=== PATIENT | male | born 1960 | race Caucasian/White ===

== ENCOUNTER → 2017-01-22 | Outpatient (CLI) | payer BC ==
[~2017-01-22] MED LIST: COEN1CAP17 PO; CRS20 PO; OMEG10007 PO; VTMD1000 PO
== END | disposition home or self-care (01) ==
LOC: C.PATHSPEC 17:55
PROVIDERS: ATTEND Urology
DX: R97.20 Elevated prostate specific antigen [PSA] (principal)

== ENCOUNTER → 2017-02-24 | Outpatient (CLI) | payer BC ==
--- NOTE | 2017-02-24 11:27 | DIAGNOSTIC IMAGING REPORT ---
BONE SCAN WHOLE BODY HISTORY: Prostate carcinoma C61 Prostate cancer RADIOTRACER: 26.1 mCi Tc-99m MDP STUDY/IMAGES: Planar anterior and posterior whole body imaging was performed 3 hours following the intravenous administration of radiotracer. COMPARISON: None. FINDINGS: Activity characteristics of the axial and appendicular skeleton are unremarkable. Bilateral renal activity is present. There are mild degenerative activity changes of the shoulders bilaterally. There are no abnormal soft tissue activity characteristics. IMPRESSION: No evidence for metastatic bone disease The above report was generated using voice recognition software. It may contain grammatical, syntax or spelling errors. Electronically signed by: Ismael Richards M.D. 02/24/2017 11:25 AM Dictated Date/Time: 02/24/2017 11:25 AM
== END | disposition home or self-care (01) ==
LOC: C.NUCL 07:34
PROVIDERS: ATTEND Urology
DX: C61 Malignant neoplasm of prostate (principal); M19.011 Primary osteoarthritis, right shoulder; M19.012 Primary osteoarthritis, left shoulder

== ENCOUNTER 2017-04-24 05:27 | Day surgery (SDC) | payer BC ==
[2017-04-09 08:00] VITALS: BMI 22.0
--- NOTE | 2017-04-09 08:40 | PAT Medication Instructions ---
Service Date Apr 09, 2017. Current Home Medication List Cholecalciferol (Vitamin D3), 1 TAB PO QPM Coenzyme Q10 (Ubidecarenone) (Co Q 10), 1 TAB PO QPM Fish Oil ([place]-3), 1 CAP PO QPM Rosuvastatin Calcium (Crestor), 1 TAB PO HS Medication Instructions For Your Scheduled Surgery - Hold the following medications 2 weeks prior to surgery: Coenzyme Q10 (Ubidecarenone) (Co Q 10), 1 TAB PO QPM Fish Oil ([place]-3), 1 CAP PO QPM - Take the following medications as scheduled the night before surgery: Cholecalciferol (Vitamin D3), 1 TAB PO QPM Rosuvastatin Calcium (Crestor), 1 TAB PO HS If you have any questions please call us at [phone] or [phone] or [phone]
--- NOTE | 2017-04-09 09:22 | DIAGNOSTIC IMAGING REPORT ---
CHEST PREADMISSION(PA/LAT) CLINICAL HISTORY: Preoperative evaluation. COMPARISON STUDY: Chest radiograph April 03, 2016. FINDINGS: The lung volumes are normal. No pneumothorax or pleural effusion is present. There is no consolidation or evidence of pulmonary edema. Cardiomediastinal silhouette is normal. IMPRESSION: No acute cardiopulmonary findings. Electronically signed by: Bebeto Wilson M.D. 04/09/2017 9:20 AM Dictated Date/Time: 04/09/2017 9:19 AM
[2017-04-09 09:37] LABS: BASO % 0.5 %; BASO ABS # 0.03 K/uL (0-0.2); COMPLETE YES; EOS % 3.9 %; HEMATOCRIT 42.3 % (42-52); IG% 0.2 %; LYMPH % 23.5 %; LYMPH ABS # 1.34 K/uL (1.2-3.4); MEAN CELL VOLUME 92.6 fL (80-100); MEAN CORPUSCULAR HEMOGLOBIN 30.6 pg (25-34); MEAN CORPUSCULAR HGB CONC 33.1 g/dl (32-36); MEAN PLATELET VOLUME 9.2 fL (7.4-10.4); MONO % 9.3 %; NEUT % 62.6 %; PLATELET COUNT 293 K/uL (130-400); RED BLOOD COUNT 4.57 M/uL (4.7-6.1); WHITE BLOOD COUNT 5.71 K/uL (4.8-10.8)
[2017-04-09 09:38] LABS: URINE APPEARANCE CLEAR (CLEAR); URINE BILIRUBIN NEG (NEG); URINE COLOR YELLOW; URINE NITRITE NEG (NEG); URINE SPECIFIC GRAVITY 1.018 (1.000-1.030); UROBILINOGEN NEG (NEG)
[2017-04-09 09:39] LABS: MANUAL MICROSCOPIC REQUIRED? NO; REVIEW REQ? NO
[2017-04-09 09:46] LABS: BUN/CREATININE RATIO 15.5 (10-20); CALCIUM 9.4 mg/dl (8.5-10.1); CREATININE 0.91 mg/dl (0.60-1.40); POTASSIUM 4.7 mmol/L (3.5-5.1)
[~2017-04-24] VITALS: Ht 165.1 cm; Wt 61.4 kg
[2017-04-24 05:55] VITALS: BP 143/87; PULSE 86; TEMP 36.6; O2SAT 98; Ht 165.1 cm; Wt 61.4 kg
[2017-04-24] MEDS ORDERED: LACTATED RINGER'S 1000ML 1,000 ML IV SCH (06:00)
[2017-04-24] MEDS ORDERED: CIPROFLOXACIN / D5W 400 MG IV SCH (06:00)
[2017-04-24] MEDS ORDERED: GENTAMICIN INJ 120 MG in DEXTROSE 5% 100ML 100 ML IV SCH (06:00)
[2017-04-24] MEDS ORDERED: METH1TAB81 PO (06:11)
[2017-04-24] MEDS ORDERED: CIPR1TAB11 PO (06:11)
--- NOTE | 2017-04-24 07:00 | History & Physical Bridge Note ---
H&P Re-Evaluation Bridge Note: I have examined the patient, reviewed the History & Physical and in the interval since the performance of the History & Physical I have noted the following changes of clinical significance: No changes noted
[2017-04-24] MEDS ORDERED: NEOSTIGMINE METHYLSULFATE 5 MG/5 ML SYR ONE (07:04)
[2017-04-24] MEDS ORDERED: PROPOFOL IV EMULSION 10 MG/ML 20 ML VIAL IV ONE (07:04)
[2017-04-24] MEDS ORDERED: LIDOCAINE HCL 2% 2 ML VIAL (20MG/ML) ONE (07:04)
[2017-04-24] MEDS ORDERED: DEXAMETHASONE SOD INJ 4 MG/ML VIAL ONE ×2 (07:04→07:49)
[2017-04-24] MEDS ORDERED: MIDAZOLAM HCL 1 MG/ML 2ML VIAL ONE (07:04)
[2017-04-24] MEDS ORDERED: ONDANSETRON INJ 2 MG/ML 2 ML VIAL ONE ×2 (07:04→09:03)
[2017-04-24] MEDS ORDERED: GLYCOPYRROLATE INJ 0.2 MG/ML VIAL ONE ×2 (07:04→09:03)
[2017-04-24] MEDS ORDERED: FENTANYL CITRATE INJ 50 MCG/1 ML 2 ML VIAL ONE (07:04)
[2017-04-24] MEDS ORDERED: CONRAY 60% 50 ML VIAL ONE (07:26)
[2017-04-24] MEDS ORDERED: ONDANSETRON INJ 2 MG/ML 2 ML VIAL IV PRN (07:45)
[2017-04-24] MEDS ORDERED: ATROPINE SULFATE 0.1 MG/ML 5ML SYR IV PRN (07:45)
[2017-04-24] MEDS ORDERED: HYDROmorphone INJ 1 MG/ML SYR IV PRN (07:45)
[2017-04-24] MEDS ORDERED: EpHEDrine SULFATE INJ 50 MG/ML AMP IV PRN (07:45)
[2017-04-24] MEDS ORDERED: LARYING-O-JET KIT (LTA) ONE ×2 (07:49)
[2017-04-24] MEDS ORDERED: PHENYLEPHRINE 100MCG/ML 5ML SYR ONE (07:53)
[2017-04-24] MEDS ORDERED: DiphenhydrAMINE HCL 50 MG/ML VIAL ONE (08:05)
[2017-04-24] MEDS ORDERED: EpHEDrine SULFATE 50MG/5ML SYR ONE (09:03)
[2017-04-24] MEDS ORDERED: BACITRACIN OINT 15 GM TUBE ONE (09:35)
[2017-04-24] MEDS ORDERED: KETOROLAC TROMETHAMINE 30 MG/ML VIAL ONE (09:36)
--- NOTE | 2017-04-24 09:52 | Discharge Instructions ---
Discharge Instructions Date of Service Apr 24, 2017. Admission Reason for Admission: Prostate Cancer Discharge Discharge Diagnosis / Problem: Prostate cancer s/p brachytherapy of the prostate Discharge Goals Goal(s): Improve disease control, Therapeutic intervention Activity Recommendations Activity Limitations: as noted below Lifting Limitations: no more than 25 pounds, gradually increase as tolerated Exercise/Sports Limitations: rest today, gradually increase as tolerated May Resume Sexual Activity: after follow-up appointment Shower/Bathe: tomorrow (no tub bath for 2 days) Driving or Machine Use: resume 1 day after discharge . Instructions / Follow-Up Instructions / Follow-Up In office as scheduled for symptom check Current Hospital Diet Patient's current hospital diet: Discharge Diet Recommended Diet: Regular Diet (good fluid intake) Procedures Procedures Performed: Brachy Therapy Volume and Guide Pending Studies Studies pending at discharge: no Medical Emergencies . Who to Call and When: Medical Emergencies: If at any time you feel your situation is an emergency, please call 911 immediately. . Non-Emergent Contact Non-Emergency issues call your: Urologist Call Non-Emergent contact if: you have a fever, temperature is above 101, your pain is not controlled, your pain is worsening, your pain is unusual for you, your pain is concerning you, you have any medication questions . . "Provider Documentation" section prepared by Shaggy Fajardo. . VTE Core Measure Inpt VTE Proph given/why not?: SCD's
[2017-04-24] MEDS ORDERED: OXYCODONE/ACETAMINOPHEN 5-325 TAB PO PRN ×2 (10:00)
[2017-04-24] MEDS ORDERED: PHENAZOPYRIDINE HCL 200 MG TAB PO PRN (10:00)
--- NOTE | 2017-04-24 10:00 | [facility] Post Operative Brief Note ---
Immediate Operative Summary Operative Date Apr 24, 2017. Pre-Operative Diagnosis cT1c Eryn 3+4 Prostate cancer, pre-treatment PSA of 4.6 Post-Operative Diagnosis Same Procedure(s) Performed Brachy Therapy Volume and Guide Surgeon Dr. Fajardo, Dr. Chappell Lead Radiation Therapist Surgeon(s) Rommel Avalos Estimated Blood Loss 10 ml Findings 18 cc gland, 46 seeds placed via 19 needles Specimens none per surgeon Drains Nance to gravity Anesthesia GAET Complication(s) None Disposition Recovery Room / PACU
--- NOTE | 2017-04-24 10:05 | [facility] Operative Report ---
Operative Report Operative Date Apr 24, 2017. Pre-Operative Diagnosis cT1c [place] 3+4 Prostate cancer, pre-treatment PSA of 4.6 Post-Operative Diagnosis Same Procedure(s) Performed Brachy Therapy Volume and Guide Surgeon Dr. Fajardo, Dr. Chappell Foreign Service Teacher Surgeon(s) Rommel Avalos Estimated Blood Loss 10 ml Findings 18 cc gland, 46 seeds placed via 19 needles. Specimens none per surgeon Drains Nance to gravity Anesthesia GAET Disposition Recovery Room / PACU Indications 56-year-old man found to have Eryn 3+4 prostate cancer on prostate biopsy for elevated PSA 4.6. After discussion of risks and benefits of various forms of intervention is decided upon brachytherapy of the prostate gland to manage his disease. Please see H&P for further details. He has taken his preoperative antibiotics as ordered as well as his anti-inflammatories. Intravenous gentamicin and ciprofloxacin provided for antibiotic coverage today and SCDs used for DVT prophylaxis. Description of Procedure Patient was properly identified and brought into the operative suite after identification of appropriate consent of the chart. General anesthesia with endotracheal intubation was initiated and patient was prepped and draped in standard fashion for this procedure. Full timeout procedure was followed. Nance catheter was placed with [place] in the bladder and aerated gel within the catheter for easier identification on ultrasound. Transrectal ultrasound probe was introduced in prostate was well visualized and noted to be only 18 mL in size consistent with previous imaging findings. Boundaries of the prostate were well-defined and minimal calcific patient will present. Prostate images were captured and radiation oncology plan calculated per their service. Peripheral needle pass a 14 needles was made and these were implanted per the radiation oncology plan with good location of the seeds on direct visualization with live ultrasound imaging. After this was complete calculations were redone and 5 internal needles were used for a second pass with excellent coverage of the gland. Rectal and urethral doses were noted to be within acceptable limits. Minimal bleeding was present. Fluoroscopy images were captured demonstrating good seed position on plain imaging. Bladder was drained catheter placed to gravity drainage. Pressure was held with bacitracin ointment and the perineal area using an orthopedic hammer to avoid excess proximity to the seeds. Anesthesia was reversed patient was transferred the recovery room in stable condition. Follow-up care: Patient will be discharged the radiation oncology service for further imaging. Trial void today prior to discharge home. Patient has his prescriptions at home to complete including his antibiotic and medications for voiding symptoms. Postoperative appointments are confirmed. Patient is to contact our service should he note any fevers, chills, nausea, vomiting or other significant difficulties in the postoperative period. I attest to the content of the Intraoperative Record and any orders documented therein. Any exceptions are noted below.
[2017-04-24] MEDS: FENTANYL CITRATE INJ 50 MCG/1 ML 2 ML VIAL IV PRN ×3 (10:09→10:20)
--- NOTE | 2017-04-24 10:40 | Anesthesiology Progress Note ---
Anesthesia Post Op Note Date & Time Apr 24, 2017 at 10:39 Vital Signs Pain Intensity: 2 Vital Signs Past 12 Hours Date Time Temp Pulse Resp B/P (MAP) Pulse Ox O2 Delivery O2 Flow Rate FiO2 04/24/17 10:30 36.3 66 16 127/88 100 Room Air 04/24/17 10:20 71 16 129/80 100 Room Air 04/24/17 10:10 67 16 117/74 100 Oxymask 10 04/24/17 10:00 70 16 116/81 100 Oxymask 10 04/24/17 09:50 36.2 105 16 138/82 100 Oxymask 10 04/24/17 05:55 36.6 86 18 143/87 (105) 98 Room Air Notes Mental Status: alert / awake / arousable, participated in evaluation Pt Amnestic to Procedure: Yes Nausea / Vomiting: adequately controlled Pain: adequately controlled Airway Patency, RR, SpO2: stable & adequate BP & HR: stable & adequate Hydration State: stable & adequate Anesthetic Complications: no major complications apparent
[2017-04-24 10:45] VITALS: BP 117/75; PULSE 63; TEMP 36.4; O2SAT 100
[2017-04-24 11:17] VITALS: BP 120/71; PULSE 85; O2SAT 99
[2017-04-24 11:40] VITALS: BP 113/73; PULSE 104; O2SAT 99
--- NOTE | 2017-04-24 14:03 | DIAGNOSTIC IMAGING REPORT ---
INTRAOPERATIVE RADIOGRAPH CLINICAL HISTORY: Brachytherapy treatment the prostate. Fluoroscopy time: 5 seconds. FINDINGS: A single spot fluoroscopic image of the pelvis is presented. A Nance catheter is in place and the bladder is distended with contrast. Numerous brachytherapy seeds project over the prostate gland. IMPRESSION: Intraoperative image from brachytherapy treatment of prostate gland. Electronically signed by: Sanjeev Cerda M.D. 04/24/2017 2:01 PM Dictated Date/Time: 04/24/2017 2:00 PM
== END 2017-04-24 12:00 | disposition home or self-care (01) ==
LOC: C.ACU 05:27
PROVIDERS: ATTEND Urology
DX: C61 Malignant neoplasm of prostate (principal); R97.20 Elevated prostate specific antigen [PSA]; E78.5 Hyperlipidemia, unspecified; N43.40 Spermatocele of epididymis, unspecified; Z80.42 Family history of malignant neoplasm of prostate; Z87.891 Personal history of nicotine dependence

== ENCOUNTER → 2017-04-28 | Outpatient (CLI) | payer BC ==
[~2017-04-28] MED LIST changes: +CIPR1TAB11 PO; +METH1TAB81 PO
--- NOTE | 2017-07-16 07:20 | CODING QUERY NO DIAGNOSIS ---
: 1960 TREATMENT RENDERED WITHOUT A DIAGNOSIS To promote full compliance with coding requirements relating to patient care, physician participation is requested in all cases of refuge manager uncertainty. Please assist us with providing a diagnosis/symptom for the test(s) below: A diagnosis/symptom was not documented on your Order. A valid diagnosis/symptom is required to bill all insurances. Please remember that we are unable to code a diagnosis of rule out, probable, possible, questionable, or suspected. Tests that require a diagnosis: DOS 04/28/17 BRACHYTX ISODOSE COMPLEX DIAGNOSIS: Provider Signature: Date: Thank you Cheryl Lowry [facility] Health Information Management Once completed, please kindly fax back to [phone] For questions please call [phone]
== END | disposition home or self-care (01) ==
LOC: C.ONC 12:36
PROVIDERS: ATTEND Physician Assistant Medical
DX: C61 Malignant neoplasm of prostate (principal)

== ENCOUNTER → 2017-08-20 | Outpatient (CLI) | payer OTHER ==
[~2017-08-20] MED LIST changes: -CIPR1TAB11 PO; -METH1TAB81 PO
[2017-08-20 14:01] VITALS: BP 117/68; PULSE 72; TEMP 37; O2SAT 96
--- NOTE | 2017-08-20 16:16 | Radiation Oncology Follow-Up ---
Radiation Oncology Follow-Up Date of Visit Aug 20, 2017. Reason For Visit One-month follow-up in cancer survivorship care plan Radiation Completion Date 04/24/17implant IMRT 07/21/17 Diagnosis (1) Prostate cancer Status: Acute Onset Date: 01/22/2017 Location: Left lobe of the prostate Histology Subtype: Adenocarcinoma Stage: ll Permanent Comment: Rise in PSA. Pretreatment PSA 4.6 Status post ultrasound-guided biopsies 01/22/2017 Adenocarcinoma [place] 3+3 and 3+4 with perineural invasion Prostate volume 18.3 Prostate density 0.251 Status post prostate seed implant 04/24/2017, 46 seeds were placed, 8500 cGy Status post completion of radiation therapy July 21, 2017. He received 4500 cGy utilizing volumetric modulated radiation therapy. Last Edited By: Aminta Ramirez on Aug 01, 2017 08:08 History of Present Illness Mr. Cardona has a family history of prostate cancer. The patient's brother was diagnosed with prostate cancer at age 52. He is presently 62 and alive and well after treatment with a radical prostatectomy. Patient also has a son age 30 who will start screening at the appropriate time. The patient has been followed with screening prostate-specific antigens. The patient was initially seen by Dr. Fajardo on 03/19/2016 with a history of enlarging spermatocele right greater than left. He underwent an ultrasound for diagnosis and a surgery performed on 04/15/2016 with a spermatocelectomy. A subsequent prostate- specific antigen performed on 05/28/2016 was 3.8. This was repeated on 2016 with a prostate-specific antigen of 4.6 and free prostate-specific antigen at 9%. With this change in prostate-specific antigen and a low free prostate- specific antigen Dr. Fajardo discussed ultrasound-guided biopsies with the patient. He agreed to proceed and therefore on 01/22/2017 the patient underwent this procedure. A total of 14 biopsies were taken. This includes 2 biopsies each of the left and right base, left and right mid, left and right apex and one biopsy each from the left and right anterior gland. The biopsies from the left base, right base, right mid gland, right apex and right anterior were benign. 2 of 2 biopsies from the left mid gland were positive for adenocarcinoma [place] grade 3+4 involving 20% and 15% of the core samples respectively. The Eryn pattern 4 comprises 10% of the tumor present. There was evidence of perineural invasion. 2 of 2 biopsies in the left apex were positive for adenocarcinoma [place] grade 3+3 involving 35% and 20% of the core tissue samples respectively. There was perineural invasion identified. One biopsy from the left anterior were positive for adenocarcinoma [place] grade 3+3 involving 25% of the core tissue sample with no perineural invasion identified. Therefore total of 5 out of 14 biopsies were positive on the left. 3 biopsies were Eryn grade 3+3 and 2 biopsies were E[place] grade 3+4. Case: [id number]. The patient's clinical stage was therefore a T1c and his biopsy stage was a T2b. The patient return to discuss these findings with Dr. Fajardo area he ordered a staging bone scan which was performed on 02/24/2017. This showed no evidence of bony metastatic disease. He briefly discussed the role of radical prostatectomy. The patient will return this March 07 to discuss in further detail the surgical option. He asked us to see the patient to discuss the radiation treatment option. After reviewing all his options the patient ultimately made the decision to undergo prostate seed implant followed by external beam therapy. The seed implant was performed on 04/24/2017. 46 seeds were placed. He received 8500 cGy. He then returned to our office and underwent a CT simulation. He received external beam radiation therapy. Treatment was complete July. He received 4500 cGy. Interim History He has been doing well over the past month. He has had improvement in his urinary status. His AUA score today was 2. At the end of treatment he had given a score of 5. He is not having issues with dysuria. He completed and expanded prostate cancer index composite for clinical practice and gave a score of 0 of 12 and urinary incontinence symptoms. He gives a score of 1 of 12 and urinary irritation symptoms. He gives score of 1 of 12 and bowel symptoms. He gave a score of 0 12 and sexual symptoms. He gave a score of 0 of 12 and hormonal vitality symptoms. His total was 2 of 60. Allergies Coded Allergies: No Known Allergies (Unverified , 04/09/17) Home Medications Scheduled Cholecalciferol (Vitamin D3), 1 TAB PO QPM Coenzyme Q10 (Ubidecarenone) (Co Q 10), 1 TAB PO QPM Fish Oil ([place]-3), 1 CAP PO QPM Rosuvastatin Calcium (Crestor), 1 TAB PO HS Review of Systems Gastrointestinal: Symptoms: WNL Oral: Symptoms: No Problems Respiratory: Symptoms: WNL Urinary: Symptoms: Nocturia Comments: nocturiax1 Skin: Symptoms: No Problems Physical Exam Vital Signs Date Time Temp Pulse Resp B/P (MAP) Pulse Ox O2 Delivery O2 Flow Rate FiO2 08/20/17 14:01 37.0 72 20 117/68 96 Fatigue: None General Appearance: no apparent distress Eyes: normal inspection, EOMI ENT: normal ENT inspection, hearing grossly normal Neck: no adenopathy Respiratory/Chest: lungs clear, no respiratory distress, no accessory muscle use Cardiovascular: regular rate, rhythm, no gallop, no murmur Abdomen: non tender, soft, no organomegaly Extremities: no pedal edema Neurologic/Psychiatric: no motor/sensory deficits, alert, normal mood/affect Skin: warm/dry Pain Management Patient Reports Pain: No Initial Pain Intensity: 0.0 Pain Management Plan He denied pain therefore requires no pain management. Laboratory Laboratory Results: pending Pathology Pathology Results: and pertinent findings noted in HPI Imaging Imaging Studies: not applicable Assessment & Plan Plan: An order was given for him to have a PSA drawn. He would like to have this at a [facility] lab. Because of his insurance is got better coverage. We will send a copy of the report to Dr. Fajardo and Dr. Jeremy Srivastava. Today we completed a cancer survivorship care plan. A copy of the document was given to the patient. He was also given a survivorship booklet. He understands follow-up is by recheck PSAs. The pre-treatment PSA was 4.6. He will be notified as to results of his recheck PSA. He is going to see Dr. Fajardo in 3 months. We asked him to return to our office in 6 months. An order was given for him to have a PSA prior to that visit. He may call our office if he has any questions or concerns in the interim. Total Time In Follow-Up I spent 20 minutes speaking to the patient in performing examination. I spent 20 minutes reviewing information, preparing the survivorship document, and completing this note. Copy To Shaggy Fajardo MD, Urology
== END | disposition home or self-care (01) ==
LOC: C.ONC 13:47
PROVIDERS: ATTEND Physician Assistant Medical
DX: Z08 Encounter for follow-up examination after completed treatment for malignant neoplasm (principal); Z92.3 Personal history of irradiation; Z85.46 Personal history of malignant neoplasm of prostate